=== PATIENT | female | born 1960 | race Caucasian/White ===

== ENCOUNTER 2018-10-13 08:04 | Day surgery (SDC) | payer BC ==
[~2018-10-13] VITALS: Ht 165.1 cm; Wt 135.5 kg
[~2018-10-13 08:04] MED LIST: BLOOD PRESSURE MED; CARDIZEM 225 MG/5 ML; CEPHALEXIN500 M1 PO; ESTROGEN; MOTRIN 800800 MG/TAB PO; NORCO 325 MG-7.1 TAB PO; SYNTHROID 0.0.025 MG; WATER PILL
[2018-10-13 10:43] VITALS: BP 180/93; PULSE 92; TEMP 97.7
[2018-10-13] MEDS ORDERED: HCTZ 25MG TAB25 MG PO (12:00)
[2018-10-13] MEDS ORDERED: MOTRIN 800800 MG/TAB PO (12:00)
[2018-10-13] MEDS ORDERED: CARDIZEM CD 30300 MG PO (12:01)
[2018-10-13] MEDS ORDERED: COZAAR100 MG PO (12:07)
[2018-10-13] MEDS ORDERED: SYNTHROID0.175 MG PO (12:08)
[2018-10-13] MEDS ORDERED: K-DUR 10 MEQ T10 MEQ PO (12:08)
[2018-10-13] MEDS ORDERED: MULTIPLE VITAMI1 CAP PO (12:09)
[2018-10-13] MEDS ORDERED: PROVENTIL0.09 MG/A1 IH (12:10)
[2018-10-13 16:07] VITALS: TEMP 98.5
[2018-10-13] MEDS ORDERED: PERCOCET 325 MG1 TA2 PO (16:17)
[2018-10-13] MEDS ORDERED: MOTRIN 600600 MG/TAB PO (16:17)
[2018-10-13] MEDS ORDERED: COLACE 100100 MG/CAP PO (16:17)
[2018-10-13 16:20] VITALS: BP 125/64; PULSE 80
--- NOTE | 2018-10-13 16:20 | NUR ---
Patient returns to room 4 per cart from PACU and is awake and alert. Temp 97.7 and room air sats 92%. Dressing dry on the left shoulder. Simpson set covering the left axilla lymph node biopsy sites. IV fluids infusing left AC and site is free of redness or swelling. Siderails up x2 and call light in reach. Taking sips of water and denies pain or nausea.
[2018-10-13 16:35] VITALS: BP 122/87; PULSE 76
--- NOTE | 2018-10-13 16:35 | NUR ---
Resting and taking sips of water.
[2018-10-13 16:50] VITALS: BP 136/90; PULSE 74
--- NOTE | 2018-10-13 16:50 | NUR ---
Eating crackers and peanut butter. Denies nausea. Son in the room.
[2018-10-13 17:05] VITALS: BP 128/78; PULSE 76
--- NOTE | 2018-10-13 17:05 | NUR ---
States that she is having left shoulder incisional pain at 5/10.
--- NOTE | 2018-10-13 17:10 | NUR ---
Percocet 5mg one tab given. IV discontinued and site free of redness.
--- NOTE | 2018-10-13 17:15 | NUR ---
Assisted up to the bathroom and gait is steady.
--- NOTE | 2018-10-13 17:30 | NUR ---
Given dismissal instructions and voices understanding of home cares and follow up as scheduled. Provided scritps for Percocet, Colace, and Motrin.
--- NOTE | 2018-10-13 17:35 | NUR ---
Patient dismissed to home driven by son per private vehicle and taken to car per wheelchair and assisted into vehicle with dismissal instructions in hand.
== END 2018-10-13 17:35 | disposition home or self-care (01) ==
LOC: SDCO 08:04
DX: D18.01 Hemangioma of skin and subcutaneous tissue (principal); C77.3 Secondary and unspecified malignant neoplasm of axilla and upper limb lymph nodes; Z79.82 Long term (current) use of aspirin; I10 Essential (primary) hypertension; E03.9 Hypothyroidism, unspecified; J45.909 Unspecified asthma, uncomplicated; M19.90 Unspecified osteoarthritis, unspecified site; Z96.652 Presence of left artificial knee joint; Z82.49 Family history of ischemic heart disease and other diseases of the circulatory system
CPT/HCPCS: A9541; J0690; J1100; J1885; J2405; J2704; J3010; J7120; Q9968

== ENCOUNTER → 2018-12-06 | Outpatient (CLI) | payer BC ==
[~2018-12-06] VITALS: Ht 165.1 cm; Wt 134.5 kg
[~2018-12-06] MED LIST changes: +CARDIZEM CD 30300 MG PO; +COLACE 100100 MG/CAP PO; +COZAAR100 MG PO; +ESTROVEN MOOD400 MCG PO; +HCTZ 25MG TAB25 MG PO; +K-DUR 10 MEQ T10 MEQ PO; +MOTRIN 600600 MG/TAB PO; +MULTIPLE VITAMI1 CAP PO; +PERCOCET 325 MG1 TA2 PO; +PROVENTIL0.09 MG/A1 IH; +SYNTHROID0.175 MG PO
[2018-12-06 09:03] VITALS: BP 137/98; PULSE 89
[2018-12-06 10:30] VITALS: BP 149/93; PULSE 78
--- NOTE | 2018-12-06 10:48 | NUR ---
no pain, blood on the bandaide or problems. pt was taken to pov and left.
== END ==
LOC: COL.RAD 08:42
DX: C43.59 Malignant melanoma of other part of trunk (principal); R22.1 Localized swelling, mass and lump, neck
CPT/HCPCS: 32106

== ENCOUNTER → 2019-03-01 | Outpatient (CLI) | payer BC ==
[~2019-03-01] VITALS: Ht 165.1 cm; Wt 136.5 kg
[~2019-03-01] MED LIST changes: +ASPIRIN E.C. 8181 MG PO; +SYNTHROID0.2 MG/TAB PO
[2019-03-01 12:11] VITALS: BP 160/89; PULSE 82
[2019-03-01 13:15] VITALS: BP 147/86; PULSE 77
--- NOTE | 2019-03-01 13:30 | NUR ---
PT AMBULATORY TO FRONT LOBBY WITH STAFF. LEAVES FOR POV
== END ==
LOC: COL.RAD 02-27 12:30
DX: C43.59 Malignant melanoma of other part of trunk (principal)
CPT/HCPCS: 32106